=== PATIENT | female | born 1945 | race Caucasian/White ===

== ENCOUNTER 2019-11-19 08:33 | Outpatient (CLI) | payer MEDICARE, OTHER, SELFPAY ==
--- NOTE | 2019-11-19 08:45 | USCV_ITS ---
Lorraine Ramos Age: 74 Gender: F : 1945 Exam Date: 11/19/2019 08:41 Ordering Phys: Arsalan Beckett MD ([email or web address]) Technologist: Michell Jones [place] [facility] [place]: POST AVR BP: 130 / 60 HR: 50 Rhythm: Sinus Technical Quality: Adequate MEASUREMENTS (Male / Female) Normal Values 2D ECHO LV Diastolic Diameter PLAX 4.1 cm 4.2 - 5.9 / 3.9 - 5.3 cm LV Systolic Diameter PLAX 2.1 cm LV Chamber Size 2.6 cm IVS Diastolic Thickness 0.9 cm 0.6 - 1.0 / 0.6 - 0.9 cm IVS Systolic Thickness 1.5 cm LVPW Diastolic Thickness 2.0 cm 0.6 - 1.0 / 0.6 - 0.9 cm LVPW Systolic Thickness 2.3 cm RV Chamber Size 3.2 cm LVOT Diameter 1.8 cm LV Ejection Fraction 2D Teich 79.4 % LV Ejection Fraction MOD 2C 52.0 % LV Ejection Fraction 2C AL 53.7 % LA Diameter 3.6 cm LA Width 3.2 cm LA Height 4.6 cm RA Width 3.6 cm RA Height 3.4 cm M-MODE LV Diastolic Diameter MM 4.7 cm 4.2 - 5.9 / 3.9 - 5.3 cm LV Systolic Diameter MM 3.3 cm LV Ejection Fraction MM Teich 57.7 % IVS Diastolic Thickness MM 0.9 cm 0.6 - 1.0 / 0.6 - 0.9 cm IVS Systolic Thickness MM 0.9 cm LVPW Diastolic Thickness MM 0.8 cm 0.6 - 1.0 / 0.6 - 0.9 cm LVPW Systolic Thickness MM 0.9 cm Aortic Annulus Diameter 3.3 cm LA Ao Ratio MM 1.1 MV E Point Septal Separation 0.6 cm DOPPLER AV Peak Velocity 243.0 cm/s LVOT Peak Velocity 121.0 cm/s AV Area Cont Eq vti 1.5 cm squared AV Area Cont Eq pk 1.3 cm squared MV Area PHT 2.6 cm squared Mitral E to A Ratio 1.0 MV E' Velocity 7.0 cm/s Mitral E to MV E' Ratio 10.6 Mitral E to LV E' Lateral Ratio 10.3 Mitral E to LV E' Septal Ratio 10.9 TR Peak Velocity 296.0 cm/s TR Peak Gradient 35.0 mmHg TR Mean Velocity 162.0 cm/s TR Mean Gradient 13.2 mmHg TR Velocity Time Integral 107.3 cm TV Peak E Velocity 53.0 cm/s Right Atrial Pressure 3.0 mmHg Pulmonary Artery Systolic Pressu 38.0 mmHg PV Peak Velocity 70.0 cm/s RV Acceleration Time 0.2 s RV Ejection Time 0.4 s RV AcT/ET 0.4 FINDINGS Left Ventricle Normal left ventricular cavity size. Normal left ventricular systolic function. No regional wall motion abnormalities. Left ventricular ejection fraction is estimated at 57 %. Grade I/IV diastolic dysfunction (abnormal relaxation filling pattern), normal to mildly elevated filling pressures. Right Ventricle Normal right ventricular size. Mild pulmonary hypertension, RVSP 38 mmHg. Right Atrium The right atrium is normal in size. Left Atrium The left atrium is normal in size. Mitral Valve Mildly thickened mitral valve. Severe mitral annular calcification. No mitral valve stenosis. Aortic Valve Bioprosthetic aortic valve sitting in the normal position without valvular or paravalvular leak. Tricuspid Valve Moderate tricuspid valve regurgitation. Pulmonic Valve Structurally normal pulmonic valve without significant stenosis. There is no pulmonic regurgitation. Pericardium Normal pericardium without effusion. Aorta Normal ascending aorta dimension. CONCLUSIONS 1-Normal left ventricular cavity size. Normal left ventricular systolic function. No regional wall motion abnormalities. Left ventricular ejection fraction is estimated at 57 %. Grade I/IV diastolic dysfunction (abnormal relaxation filling pattern), normal to mildly elevated filling pressures. 2-Normal right ventricular size. Mild pulmonary hypertension, RVSP 38 mmHg. 3-There is no pericardial effusion. 4-Bioprosthetic aortic valve sitting in the normal position without valvular or paravalvular leak. 5-No significant change since the prior echocardiogram study of 06/18/2017. Arsalan Beckett MD (Electronically Signed) Final Date: 19 November 2019 11:51 S
== END 2019-11-19 08:34 | disposition home or self-care (01) ==
LOC: RAD 08:37
PROVIDERS: Family Provider Family Medicine; PCP Family Medicine; Visit Provider Internal Medicine Cardiovascular Disease
DX: Z95.2 Presence of prosthetic heart valve (principal); I07.1 Rheumatic tricuspid insufficiency; I27.20 Pulmonary hypertension, unspecified
CPT/HCPCS: 93306

== ENCOUNTER 2020-04-08 21:53 | Observation (INO) | payer MEDICARE, OTHER, SELFPAY ==
--- NOTE | 2020-04-08 | CTR_ITS ---
PROCEDURE INFORMATION: Exam: CT Head Without Contrast Exam date and time: 04/08/2020 9:57 PM Age: 74 years old Clinical indication: Weakness, facial; Additional info: Stroke alert TECHNIQUE: Imaging protocol: Computed tomography of the head without contrast. Radiation optimization: All CT scans at this facility use at least one of these dose optimization techniques: automated exposure control; mA and/or kV adjustment per patient size (includes targeted exams where dose is matched to clinical indication); or iterative reconstruction. Other technique: STROKE PROTOCOL was implemented. COMPARISON: No relevant prior studies available. RADIATION DOSE METRICS: Total DLP (mGy-cm): 772.7 FINDINGS: Brain: Normal. No hemorrhage. Unremarkable white matter. No mass effect. Ventricles: Normal. No ventriculomegaly. Bones/joints: Unremarkable. No acute fracture. Sinuses: Visualized sinuses are unremarkable. No fluid levels. Mastoid air cells: Visualized mastoid air cells are well aerated. Soft tissues: Unremarkable. CT/CT head wo con* [id number] IMPRESSION: No acute findings ASSESSMENT: ASPECTS ([place] Stroke Program Early CT Score) is 10. Radiation Dose CTDIVOL = (mGy): DLP = 772.7 (mGy-cm)
[2020-04-08 21:56] VITALS: BP 147/75; PULSE 60; RESP 19; TEMP 37.1; O2SAT 98
--- NOTE | 2020-04-08 21:57 | ECG_ITS ---
[facility] Test Date: 2020-04-08 Pat Name: Lorraine Ramos Department: Room: Gender: Female Sand Technologist: Catia : 1945 Requested By: Hoda Abebe Order Number: [id number] Rafal MD: Kyrie Herman M.D. Measurements Intervals [place] Rate: 72 P: 85 AR: 193 QRS: -65 QRSD: 115 T: 86 QT: 424 QTc: 464 Interpretive Statements SINUS RHYTHM LEFT ANTERIOR FASCICULAR BLOCK [QRS AXIS <= -45, QR IN I, RS IN II] POSSIBLE LATERAL MYOCARDIAL INFARCTION , OF INDETERMINATE AGE [30 ms Q WAVE IN I/aVL/V5/V6] No previous ECG available for comparison Electronically Signed On 04-09-2020 1:23:32 CDT by Kyrie Herman M.D. [id number]
--- NOTE | 2020-04-08 21:57 | XRR_ITS ---
PROCEDURE INFORMATION: Exam: XR Chest, 1 View Exam date and time: 04/08/2020 10:30 PM Age: 74 years old Clinical indication: Dyspnea; Additional info: CVA symptoms TECHNIQUE: Imaging protocol: XR of the chest Views: 1 view. COMPARISON: No relevant prior studies available. FINDINGS: Lungs: Visualized portions of the lungs are clear. Pleural space: Unremarkable. No pleural effusion. No pneumothorax. Heart/Mediastinum: Heart is within normal limits of size. There are findings of aortic valve replacement and median sternotomy. Bones/joints: Unremarkable. Soft tissues: There are postsurgical changes of left mastectomy. XR/XR chest 1V portable [id number] IMPRESSION: No acute infiltrate.
--- NOTE | 2020-04-08 21:57 | CTR_ITS ---
PROCEDURE INFORMATION: Exam: CT Angiography Head With Contrast Exam date and time: 04/08/2020 10:58 PM Age: 74 years old Clinical indication: Weakness; Additional info: CVA symptoms TECHNIQUE: Imaging protocol: Computed tomography angiography of the head with intravenous contrast. 3D rendering: MIP and/or 3D reconstructed images were created by the technologist. Radiation optimization: All CT scans at this facility use at least one of these dose optimization techniques: automated exposure control; mA and/or kV adjustment per patient size (includes targeted exams where dose is matched to clinical indication); or iterative reconstruction. Contrast material: VISI 320; Contrast volume: 95 ml; Contrast route: INTRAVENOUS (IV); COMPARISON: CT head wo con* [id number] 04/08/2020 9:47 PM RADIATION DOSE METRICS: Total DLP (mGy-cm): 2076.29 FINDINGS: Anterior cerebral arteries: No occlusion or significant stenosis. No aneurysm. Right internal carotid artery: There is some atherosclerotic plaque in the right cavernous carotid artery without significant stenosis. Right middle cerebral artery: No occlusion or significant stenosis. No aneurysm. Right posterior cerebral artery: No occlusion or significant stenosis. No aneurysm. Right vertebral artery: No occlusion or significant stenosis. No aneurysm. Left internal carotid artery: There is mild atherosclerotic plaque in the left cavernous carotid artery without significant stenosis. Left middle cerebral artery: No occlusion or significant stenosis. No aneurysm. Left posterior cerebral artery: No occlusion or significant stenosis. No aneurysm. Left vertebral artery: No occlusion or significant stenosis. No aneurysm. Basilar artery: No occlusion or significant stenosis. No aneurysm. IMPRESSION: There is no major vascular occlusion or intracranial aneurysm. PROCEDURE INFORMATION: Exam: CT Angiography Neck With Contrast Exam date and time: 04/08/2020 10:58 PM Age: 74 years old Clinical indication: Weakness; Additional info: CVA symptoms TECHNIQUE: Imaging protocol: Computed tomography angiography of the neck with intravenous contrast. 3D rendering: MIP and/or 3D reconstructed images were created by the technologist. Radiation optimization: All CT scans at this facility use at least one of these dose optimization techniques: automated exposure control; mA and/or kV adjustment per patient size (includes targeted exams where dose is matched to clinical indication); or iterative reconstruction. Contrast material: VISI 320; Contrast volume: 95 ml; Contrast route: INTRAVENOUS (IV); COMPARISON: CT head wo con* [id number] 04/08/2020 9:47 PM RADIATION DOSE METRICS: Total DLP (mGy-cm): 2076.29 FINDINGS: Right common carotid artery: No stenosis. No dissection or occlusion. Right internal carotid artery: There is some focal calcified plaque at the right carotid bifurcation and internal carotid artery without stenosis according to the NASCET criteria. Right external carotid artery: No occlusion or stenosis of the origin. Right vertebral artery: No stenosis. No dissection or occlusion. Left common carotid artery: No stenosis. No dissection or occlusion. Left internal carotid artery: There is focal atherosclerotic plaque and narrowing in the origin of the left internal carotid artery with approximately 20 impression: Mild stenosis in the proximal left internal carotid artery. % stenosis as measured according to the NASCET criteria. Left external carotid artery: No occlusion or stenosis of the origin. Left vertebral artery: No stenosis. No dissection or occlusion. Bones/joints: No acute fracture. Soft tissues: Normal. No significant soft tissue swelling. Lungs: There are calcified granulomas in both pulmonary apices. 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 REFERENCES: NASCET CRITERIA. The degree of internal carotid artery stenosis is based on NASCET criteria. Normal is no stenosis. Mild is less than 50% stenosis. Moderate is 50-69% stenosis. Severe is 70% to 99% stenosis. Total occlusion is no detectable patent lumen. Radiation Dose CTDIVOL = (mGy): DLP = 7.29~7.29 (mGy-cm)
--- NOTE | 2020-04-08 22:08 | PC.NURSE ---
EKG done at 2205, blood glucose is 126, EKG was shown to ER doctor and nurse, charge nurse are aware of blood glucose
[2020-04-08 22:12] LABS: Glucose Point of Care 126 mg/dL (70-110)
[2020-04-08 22:24] LABS: Basophils # 0.1 10^3/uL (0.0-0.1); Basophils % 0.6 %; Eosinophils # 0.2 10^3/uL (0.0-0.8); Hematocrit 38.5 % (37.0-47.0); Hemoglobin 12.4 g/dL (11.5-15.3); Mean Corpuscular HGB Conc 32.2 g/dL (30.0-36.0); Mean Corpuscular Hemoglobin 28.7 pg (28.0-34.0); Mean Corpuscular Volume 89.1 fL (81-99); Mean Platelet Volume 10.6 fL (7.4-10.4); Monocytes # 0.6 10^3/uL (0.2-0.9); Monocytes % 6.8 %; Neutrophils # 5.61 10^3/uL (1.8-7.7); Neutrophils % 66.2 %; Nucleated Red Blood Cells % 0 %; Platelet Count 219 10^3/cmm (130-400); Red Blood Count 4.32 10^6/uL (4.1-5.3); White Blood Count 8.5 10^3/uL (4.0-10.0)
[2020-04-08 22:30] LABS: INR 0.99 (0.8-1.2)
[2020-04-08 22:31] LABS: Partial Thromboplastin Time 27.7 SECONDS (23.9-36.7)
[2020-04-08 22:36] LABS: Alanine Aminotransferase 36 U/L (0-33); Albumin Level 4.6 g/dL (3.5-5.2); Alkaline Phosphatase 60 IU/L (35-105); Anion Gap 15.9 (5-19); Aspartate Amino Transferase 35 U/L (0-32); Blood Urea Nitrogen 27 mg/dL (8-23); Calcium 9.2 mg/dL (8.5-10.5); Carbon Dioxide 24 mmol/L (22-29); Chloride 103 mmol/L (98-107); Glucose 135 mg/dL (65-115); Osmolality Calculated 287 mOsm/kg (285-295); Potassium 3.9 mmol/L (3.5-5.1); Sodium 139 mmol/L (136-145); Total Bilirubin 0.2 mg/dL (0.15-1.2); Total Protein 6.6 g/dL (6.6-8.7)
[2020-04-08 22:38] LABS: Troponin(5th) Baseline 15 ng/L (0-10)
--- NOTE | 2020-04-08 23:10 | ED_ITS ---
HPI - Neuro Symptoms/Deficit General: Chief Complaint: Neuro Symptoms/Deficit Stated Complaint: stroke alert/ possible tia Time Seen by Provider: 04/08/20 21:56 Source: patient and EMS Mode of arrival: EMS Limitations: no limitations History of Present Illness: HPI Narrative: Lorraine is a very nice 74-year-old female who comes in complaining of strokelike symptoms. Patient is unsure of when the onset was but believes her last known well time to be approximately 7 PM but she is still not certain of this. Patient had left-sided deficits, slurred speech and facial droop. The patient had a prolonged time before calling family and then EMS had a difficult time getting her here secondary to weather delays. By the time the patient has arrived here to the ER she states her symptoms have completely resolved. EMS states the patient symptoms have completely resolved from what they have observed. Associated symptoms: Deny chest pain, diaphoresis, headache(s), malaise, nausea, syncope, vertigo or vomiting Review of Systems Const: Denies: fever(s), chills, body aches, fatigue, malaise or diaphoresis Eyes: Denies: change in vision, blurry vision, blind spots, photophobia, eye discharge or eye redness ENMT: Denies: throat pain, odynophagia, hoarseness, swelling of lips/tongue, oral sores, ear or mastoid pain, ear discharge, change in hearing or nasal discharge Card: Denies: chest pain, palpitations, irregular heart rhythm, edema, lightheadedness, syncope, pre-syncope, dyspnea on exertion or orthopnea Resp: Denies: dyspnea, productive cough, non-productive cough, wheezing, hemoptysis or chest congestion GI: Denies: abdominal pain, nausea, vomiting, hematemesis, coffee ground emesis, heartburn, diarrhea, constipation, GI cramping, hematochezia or melena : Denies: flank pain, dysuria, urinary frequency, urinary urgency or hematuria Musc: Denies: neck pain, back pain, extremity pain, extremity swelling, joint pain, joint swelling, joint redness, joint warmth or joint stiffness Skin/Breast: Denies: rash, pruritus, erythema, skin tenderness or jaundice Neuro: Reports: other (As noted in HPI); Denies: headache(s), numbness in extremities, difficulty walking, dizziness, vertigo, confusion or seizure-like activity David/Lymph: Denies: easy bruising, easy bleeding, petechiae, purpura or enlarged lymph nodes All/Imm: Denies: urticaria, throat swelling, tongue swelling, facial swelling or acute wheezing PFSH ED PFSH: Medical History History of CVA (cerebrovascular accident) HTN (hypertension) Kidney disease Surgical History S/P aortic valve replacement S/P CABG (coronary artery bypass graft) Family History Father , Cancer in every organ Cancer Mother Cancer Colon and Breast Cancer CAD (coronary artery disease) Grandmother Stroke Sister Hypertension Atrial fibrillation Brother Hypertension Social History Smoking and tobacco status: never smoked History of recent travel: No NIH stroke score NIHSS: Level Of Consciousness - 1a: 0 Level Of Consciousness Questions - 1b: Both Correct Level Of Consciousness Commands - 1c: Both Correct Best Gaze - 2: Normal Visual Cole - 3: No Visual Loss Facial Palsy - 4: Rosa l Motor Arm Right - 5: No Drift Motor Arm Left - 5: No Drift Motor Leg Right - 6: No Drift Motor Leg Left - 6: No Drift Limb Ataxia - 7: Absent Sensory - 8: Normal Best Language - 9: No Aphasia Dysarthia - 10: Mild/Moderate Dysarthia Extinction And Inattention - 11: 0 Score: Total Score: 1 Physical Exam Const: COMMON NORMALS: no acute distress, patient oriented x3, no limitations, healthy appearing and well nourished GENERAL APPEARANCE: cooperative, well kempt and well developed HENMT: COMMON NORMALS: normocephalic, atraumatic, external ears normal, EAC's normal and Normal external nose present HEAD & SCALP: normal to inspection, normocephalic and atraumatic FACE & SINUS: normal facial exam and face symmetric NOSE: Normal external nose present and Normal nares present EXTERNAL EAR: Yes external ears normal EXTERNAL AUDITORY CANAL: EAC's normal MOUTH: Normal oral and palatal mucosa present, lip normal and tongue normal Eye: COMMON NORMALS: Equal, round and reactive pupils present and conjunctivae normal GENERAL EYE: appearance normal, both eyes and all related structures ALIGNMENT: Yes alignment normal PERIORBITAL: periorbital findings normal EYELID: eyelids normal CONJUNCTIVA: Yes conjunctivae normal SCLERA: sclerae normal PUPIL: Yes Equal, round and reactive pupils present Neck/C-Spine: COMMON NORMALS: full ROM, no lymphadenopathy, supple, no meni ngeal signs and no JVD GENERAL: Yes normal visual inspection and Yes trachea midline Chest: COMMONS NORMALS: normal inspection of the chest and normal palpation of entire chest wall Resp: COMMON NORMALS: normal respiratory effort, No retractions and No use of accessory muscles EFFORT & INSPECTION: Yes able to speak in complete sentences and Yes symmetric chest movement AUSCULTATION: no crackles, no rales, no rhonchi and no wheezes Cardio: COMMON NORMALS: no JVD, regular rate, regular rhythm, S1 normal heart sound present and S2 normal heart sound present RATE: regular rate RHYTHM: regular rhythm HEART SOUNDS: S1 normal heart sound present, S2 normal heart sound present, no click, no gallops, Murmur heart sound present systolic, no rubs and abnormal split S2 GI: COMMON NORMALS: Soft to palpation and No hepatosplenomegaly present PALPATION: Yes Soft to palpation, No Tenderness to palpation present (GI), No Guarding due to palpation present (GI), No Rigid due to palpation, Yes No hepatosplenomegaly present, No Hernia present, No Palpable mass present and No Pulsatile mass present : COMMON NORMALS: Yes no CVA tenderness BLADDER/KIDNEY EXAM: Yes no CVA tenderness EXTERNAL FEMALE EXAM: No Hernia present Back/Pelvis: COMMON NORMALS: no CVA tenderness, thoracic and lumbar spine normal to inspection, no thoracic nor lumbar tenderness and thoraco-lumbar ROM normal Extremity: COMMON NORMALS: normal to inspection, full ROM, capillary refill normal, no joint enlargement, no clubbing, cyanosis or edema and no calf tenderness Neuro: COMMON NORMALS: patient oriented x3, CN's II-XII intact bilaterally, moves all extremities, no focal motor deficits and no sensory deficits noted MENINGEAL SIGNS: Yes no meningeal signs SPEECH: speech normal Psych: COMMON NORMALS: mental status grossly normal, Normal thought process present, cooperative, normal affect, speech normal and activity/motor behavior normal APPEARANCE: Yes well kempt SPEECH: Yes normal speech THOUGHT PROCESS: Normal thought process present Skin: COMMON NORMALS: no rashes or lesions noted, turgor normal, no jaundice, no petechiae and no mottling GENERAL SKIN EXAM: no rashes or lesions noted and turgor normal Course Vital Signs: Vital signs: Vital Signs Temperature 98.8 F 04/08/20 21:56 Pulse Rate 62 04/09/20 01:18 Respiratory Rate 19 H 04/09/20 01:18 Blood Pressure 143/70 04/09/20 01:18 Pulse Oximetry 97 04/09/20 01:18 MDM - Neuro Symptoms/Deficit MDM Narrative: Medical decision making narrative: The patient symptoms have almost completely resolved but she still has the mild a aphasia trying to find words at times. I am concerned about her heart valve having a possible nidus for embolus. I reviewed the case in full with Dr. Walton he was agreeable to admission but would just want a Plavix added at this time. He wants 75 mg not a higher loading dose. He will discuss need for possible MRI with her in the morning and at this time would like to go ahead with just the Plavix. The patient symptoms have almost completely resolved but because they continue and she will need a echo as she is high risk with heart valve I believe she should stay for observation she is in agreement. Lab Data: Attestation: I reviewed the patient's lab results. Labs: Lab Results 04/08/20 04/08/20 04/08/20 Range/Units 22:01 22:11 22:11 WBC 8.5 (4.0-10.0) 10^3/ uL RBC 4.32 (4.1-5.3) 10^6/u L Hgb 12.4 (11.5-15.3) g/dL Hct 38.5 (37.0-47.0) % MCV 89.1 (81-99) fL MCH 28.7 (28.0-34.0) pg MCHC 32.2 (30.0-36.0) g/dL RDW 13.0 (12.1-15.1) % Plt Count 219 (130-400) 10^3/c mm MPV 10.6 H (7.4-10.4) fL Neut % (Auto) 66.2 % Lymph % (Auto) 24.0 % Woodson % (Auto) 6.8 % Eos % (Auto) 2.0 % Baso % (Auto) 0.6 % Neut # (Auto) 5.61 (1.8-7.7) 10^3/u L Lymph # (Auto) 2.0 (0.8-4.8) 10^3/u L Woodson # (Auto) 0.6 (0.2-0.9) 10^3/u L Eos # (Auto) 0.2 (0.0-0.8) 10^3/u L Baso # (Auto) 0.1 (0.0-0.1) 10^3/u L Nucleated RBC % (a uto) 0 % Nucleated RBCs # 0.0 /100WBC PT 13.40 H (10.5-13.3) SECO NDS INR 0.99 (0.8-1.2) APTT 27.7 (23.9-36.7) SECO NDS Sodium (136-145) mmol/L Potassium (3.5-5.1) mmol/L Chloride (98-107) mmol/L Carbon Dioxide (22-29) mmol/L Anion Gap (5-19) BUN (8-23) mg/dL Creatinine (0.5-0.9) mg/dL Glucose (65-115) mg/dL POC Glucose 126 (70-110) mg/dL Calculated Osmolal ity (285-295) mOsm/k g Calcium (8.5-10.5) mg/dL Magnesium (1.7-2.3) mg/dL Total Bilirubin (0.15-1.2) mg/dL AST (0-32) U/L ALT (0-33) U/L Alkaline Phosphata se (35-105) IU/L Troponin T Baselin e (0-10) ng/L Total Protein (6.6-8.7) g/dL Albumin (3.5-5.2) g/dL Globulin (1.3-4.6) g/dL Urine Color (Yellow) Urine Appearance (CLEAR) Urine pH (5-7) Ur Specific Gravit y (1.005-1.030) Urine Protein (Negative) Urine Glucose (UA) (Normal) Urine Ketones (Negative) Urine Blood (Negative) Urine Nitrate (Negative) Urine Bilirubin (NEGATIVE) Urine Urobilinogen (Negative) mg/dL Ur Leukocyte Damaris ase (Negative) Urine RBC (0-2) /hpf Urine WBC (0-5) /hpf Ur Squamous Epith Cells (0-5) Urine Bacteria (NONE) 04/08/20 04/08/20 04/08/20 Range/Units 22:11 22:11 23:25 WBC (4.0-10.0) 10^3/ uL RBC (4.1-5.3) 10^6/u L Hgb (11.5-15.3) g/dL Hct (37.0-47.0) % MCV (81-99) fL MCH (28.0-34.0) pg MCHC (30.0-36.0) g/dL RDW (12.1-15.1) % Plt Count (130-400) 10^3/c mm MPV (7.4-10.4) fL Neut % (Auto) % Lymph % (Auto) % Woodson % (Auto) % Eos % (Auto) % Baso % (Auto) % Neut # (Auto) (1.8-7.7) 10^3/u L Lymph # (Auto) (0.8-4.8) 10^3/u L Woodson # (Auto) (0.2-0.9) 10^3/u L Eos # (Auto) (0.0-0.8) 10^3/u L Baso # (Auto) (0.0-0.1) 10^3/u L Nucleated RBC % (a uto) % Nucleated RBCs # /100WBC PT (10.5-13.3) SECO NDS INR (0.8-1.2) APTT (23.9-36.7) SECO NDS Sodium 139 (136-145) mmol/L Potassium 3.9 (3.5-5.1) mmol/L Chloride 103 (98-107) mmol/L Carbon Dioxide 24 (22-29) mmol/L Anion Gap 15.9 (5-19) BUN 27 H (8-23) mg/dL Creatinine 1.1 H (0.5-0.9) mg/dL Glucose 135 H (65-115) mg/dL POC Glucose (70-110) mg/dL Calculated Osmolal ity 287 (285-295) mOsm/k g Calcium 9.2 (8.5-10.5) mg/dL Magnesium 2.0 (1.7-2.3) mg/dL Total Bilirubin 0.2 (0.15-1.2) mg/dL AST 35 H (0-32) U/L ALT 36 H (0-33) U/L Alkaline Phosphata se 60 (35-105) IU/L Troponin T Baselin e 15 H (0-10) ng/L Total Protein 6.6 (6.6-8.7) g/dL Albumin 4.6 (3.5-5.2) g/dL Globulin 2.0 (1.3-4.6) g/dL Urine Color Yellow (Yellow) Urine Appearance Clear (CLEAR) Urine pH 7 (5-7) Ur Specific Gravit y 1.010 (1.005-1.030) Urine Protein Neg (Negative) Urine Glucose (UA) Norm (Normal) Urine Ketones Negative (Negative) Urine Blood Neg (Negative) Urine Nitrate Negative (Negative) Urine Bilirubin Neg (NEGATIVE) Urine Urobilinogen Norm (Negative) mg/dL Ur Leukocyte Damaris ase Negative (Negative) Urine RBC None (0-2) /hpf Urine WBC None (0-5) /hpf Ur Squamous Epith Cells None (0-5) Urine Bacteria Trace (NONE) Imaging Data^: CT Head: Radiologist's impression: [address] [address] [address] Scan Report Signed Patient: Lorraine Ramos Unit #: [id number] : 1945 Age/Sex: 74 / F ADM Date: 04/08/20 Loc: ER Room/Bed: Attending Dr: Ordering Provider/Ordering MD: Hoda Mayfield DO Date of Service: 04/08/20 Procedure(s): CT head wo con* [id number] Accession Number(s): [id number] Report Number: [id number] PROCEDURE INFORMATION: Exam: CT Head Without Contrast Exam date and time: 04/08/2020 9:57 PM Age: 74 years old Clinical indication: Weakness, facial; Additional info: Stroke alert TECHNIQUE: Imaging protocol: Computed tomography of the head without contrast. Radiation optimization: All CT scans at this facility use at least one of these dose optimization techniques: automated exposure control; mA and/or kV adjustment per patient size (includes targeted exams where dose is matched to clinical indication); or iterative reconstruction. Other technique: STROKE PROTOCOL was implemented. COMPARISON: No relevant prior studies available. RADIATION DOSE METRICS: Total DLP (mGy-cm): 772.7 FINDINGS: Brain: Normal. No hemorrhage. Unremarkable white matter. No mass effect. Ventricles: Normal. No ventriculomegaly. Bones/joints: Unremarkable. No acute fracture. Sinuses: Visualized sinuses are unremarkable. No fluid levels. Mastoid air cells: Visualized mastoid air cells are well aerated. Soft tissues: Unremarkable. CT/CT head wo con* [id number] IMPRESSION: No acute findings ASSESSMENT: ASPECTS ([place] Stroke Program Early CT Score) is 10. Radiation Dose CTDIVOL = (mGy): DLP = 772.7 (mGy-cm) Dictated By: Farzad Ruiz Signed By: Farzad Ruiz Signed Date/Time: 04/08/202208 DD/ 06 CTA Head and Neck: Radiologist's impression: [place] [address] CT Scan Report Signed Patient: Lorraine Ramos Unit #: [id number] : 1945 Age/Sex: 74 / F ADM Date: 04/08/20 Loc: ER Room/Bed: Attending Dr: Ordering Provider/Ordering MD: Hoda Mayfield DO Date of Service: 04/08/20 Procedure(s): CT angio headneck* [id number] Accession Number(s): [id number] Report Number: [id number] PROCEDURE INFORMATION: Exam: CT Angiography Head With Contrast Exam date and time: 04/08/2020 10:58 PM Age: 74 years old Clinical indication: Weakness; Additional info: CVA symptoms TECHNIQUE: Imaging protocol: Computed tomography angiography of the head with intravenous contrast. 3D rendering: MIP and/or 3D reconstructed images were created by the technologist. Radiation optimization: All CT scans at this facility use at least one of these dose optimization techniques: automated exposure control; mA and/or kV adjustment per patient size (includes targeted exams where dose is matched to clinical indication); or iterative reconstruction. Contrast material: VISI 320; Contrast volume: 95 ml; Contrast route: INTRAVENOUS (IV); COMPARISON: CT head wo con* [id number] 04/08/2020 9:47 PM RADIATION DOSE METRICS: Total DLP (mGy-cm): FINDINGS: Anterior cerebral arteries: No occlusion or significant stenosis. No aneurysm. Right internal carotid artery: There is some atherosclerotic plaque in the right cavernous carotid artery without significant stenosis. Right middle cerebral artery: No occlusion or significant stenosis. No aneurysm. Right posterior cerebral artery: No occlusion or significant stenosis. No aneurysm. Right vertebral artery: No occlusion or significant stenosis. No aneurysm. Left internal carotid artery: There is mild atherosclerotic plaque in the left cavernous carotid artery without significant stenosis. Left middle cerebral artery: No occlusion or significant stenosis. No aneurysm. Left posterior cerebral artery: No occlusion or significant stenosis. No aneurysm. Left vertebral artery: No occlusion or significant stenosis. No aneurysm. Basilar artery: No occlusion or significant stenosis. No aneurysm. IMPRESSION: There is no major vascular occlusion or intracranial aneurysm. PROCEDURE INFORMATION: Exam: CT Angiography Neck With Contrast Exam date and time: 04/08/2020 10:58 PM Age: 74 years old Clinical indication: Weakness; Additional info: CVA symptoms TECHNIQUE: Imaging protocol: Computed tomography angiography of the neck with intravenous contrast. 3D rendering: MIP and/or 3D reconstructed images were created by the technologist. Radiation optimization: All CT scans at this facility use at least one of these dose optimization techniques: automated exposure control; mA and/or kV adjustment per patient size (includes targeted exams where dose is matched to clinical indication); or iterative reconstruction. Contrast material: VISI 320; Contrast volume: 95 ml; Contrast route: INTRAVENOUS (IV); COMPARISON: CT head wo con* [id number] 04/08/2020 9:47 PM RADIATION DOSE METRICS: Total DLP (mGy-cm): FINDINGS: Right common carotid artery: No stenosis. No dissection or occlusion. Right internal carotid artery: There is some focal calcified plaque at the right carotid bifurcation and internal carotid artery without stenosis according to the NASCET criteria. Right external carotid artery: No occlusion or stenosis of the origin. Right vertebral artery: No stenosis. No dissection or occlusion. Left common carotid artery: No stenosis. No dissection or occlusion. Left internal carotid artery: There is focal atherosclerotic plaque and narrowing in the origin of the left internal carotid artery with approximately 20 impression: Mild stenosis in the proximal left internal carotid artery. % stenosis as measured according to the NASCET criteria. Left external carotid artery: No occlusion or stenosis of the origin. Left vertebral artery: No stenosis. No dissection or occlusion. Bones/joints: No acute fracture. Soft tissues: Normal. No significant soft tissue swelling. Lungs: There are calcified granulomas in both pulmonary apices. 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 REFERENCES: NASCET CRITERIA. The degree of internal carotid artery stenosis is based on NASCET criteria. Normal is no stenosis. Mild is less than 50% stenosis. Moderate is 50-69% stenosis. Severe is 70% to 99% stenosis. Total occlusion is no detectable patent lumen. Radiation Dose CTDIVOL = (mGy): DLP = 2077.29 2077.29 (mGy-cm) Dictated By: Farzad Ruiz Signed By: Farzad Ruiz Signed Date/Time: 04/08/20 2350 DD/ 2349 CXR: My impression: No acute cardiopulmonary findings. EKG Data^: EKG 1: Attestation: I personally reviewed and interpreted this EKG as follows: EKG interpretation date: 04/08/20 EKG interpretation time: 22:13 Interpretation: Normal sinus rhythm at 72 beats a minute, LVH, T wave inverted in aVL and V2, U waves present, QTC slightly prolonged. Discharge Plan Discharge Patient Disposition: Placed in Observation Admit Provider: Servando Galarza Clinical Impression: Cerebrovascular accident Qualifiers: CVA mechanism: unspecified Qualified Code(s): I63.9 - Cerebral infarction, unspecified Condition: Stable Referrals: Arnaldo Ramos [Primary Care Provider] - Discharge Date/Time: 04/09/20 01:43 Coding Level of Care Code ED Analytical Lab Technician for [facility] Fwd Exam Comprehensive
[2020-04-08] MEDS: iodixanol 320 mg/mL 100mL Btl IV (23:25)
[2020-04-08 23:50] VITALS: BP 129/78; PULSE 65; RESP 18; O2SAT 98
--- NOTE | 2020-04-08 23:57 | ECG_ITS ---
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 Measurements Intervals [place] Rate: 63 P: 29 CT: 191 QRS: -45 QRSD: 108 T: 61 QT: 461 QTc: 472 Interpretive Statements SINUS RHYTHM LEFT ANTERIOR FASCICULAR BLOCK [QRS AXIS <= -45, QR IN I, RS IN II] VOLTAGE CRITERIA FOR LVH [MEETS CRITERIA IN ONE OF: R(aVL), S(V1), R(V5), R(V5/V6)+S(V1)] Compared to ECG 04/08/2020 22:13:01 Left ventricular hypertrophy now present Myocardial infarct finding no longer present Electronically Signed On 04-09-2020 23:45:05 CDT by Kyrie Herman M.D. [id number]
[2020-04-09] VITALS (13 sets, daily range): BP systolic 125–168; BP diastolic 64–73; PULSE 62–76; RESP 16–21; TEMP 36.5–36.9; O2SAT 94–99
[2020-04-09 00:06] LABS: Glucose Urine UA Norm (Normal); Ketones Urine Negative (Negative); Protein Urine Neg (Negative); Urine Appearance Clear (CLEAR); Urine Color Yellow (Yellow); pH Urine 7 (5-7)
[2020-04-09 00:07] LABS: Bacteria Urine TRACE; Bilirubin Urine Neg (NEGATIVE); Blood Urine Neg (Negative); Leukocyte Esterase Urine Negative (Negative); Nitrate Urine Negative (Negative); Urobilinogen Urine Norm (Negative)
[2020-04-09] MEDS: clopidogrel 75 mg Tablet PO (01:07)
--- NOTE | 2020-04-09 03:57 | ECG_ITS ---
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 Measurements Intervals [place] Rate: 72 P: 85 WA: 193 QRS: -65 QRSD: 115 T: 86 QT: 424 QTc: 464 Interpretive Statements SINUS RHYTHM LEFT ANTERIOR FASCICULAR BLOCK [QRS AXIS <= -45, QR IN I, RS IN II] POSSIBLE LATERAL MYOCARDIAL INFARCTION , OF INDETERMINATE AGE [30 ms Q WAVE IN I/aVL/V5/V6] No previous ECG available for comparison Electronically Signed On 04-09-2020 23:43:34 CDT by Kyrie Herman M.D. [id number]
[2020-04-09 04:08] LABS: Basophils % 0.4 %; Eosinophils % 0.5 %; Hematocrit 36.2 % (37.0-47.0); Hemoglobin 11.8 g/dL (11.5-15.3); Lymphocytes # 1.7 10^3/uL (0.8-4.8); Lymphocytes % 22.3 %; Mean Corpuscular HGB Conc 32.6 g/dL (30.0-36.0); Mean Corpuscular Hemoglobin 29.2 pg (28.0-34.0); Mean Corpuscular Volume 89.6 fL (81-99); Mean Platelet Volume 10.8 fL (7.4-10.4); Monocytes # 0.4 10^3/uL (0.2-0.9); Monocytes % 5.2 %; Neutrophils # 5.34 10^3/uL (1.8-7.7); Neutrophils % 71.3 %; Nucleated Red Blood Cells % 0 %; Platelet Count 212 10^3/cmm (130-400); Red Blood Count 4.04 10^6/uL (4.1-5.3); White Blood Count 7.5 10^3/uL (4.0-10.0)
[2020-04-09 04:37] LABS: Anion Gap 14.8 (5-19); Blood Urea Nitrogen 18 mg/dL (8-23); Calcium 8.5 mg/dL (8.5-10.5); Carbon Dioxide 24 mmol/L (22-29); Chloride 106 mmol/L (98-107); Glucose 120 mg/dL (65-115); Osmolality Calculated 290 mOsm/kg (285-295); Potassium 3.8 mmol/L (3.5-5.1); Sodium 141 mmol/L (136-145)
--- NOTE | 2020-04-09 05:35 | P.HP_ITS ---
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 She fell off of the lawnmower backwards, and does not exactly remember how, but somehow got herself to the house, and called her daughter for help after she pulled herself up to the bar where the phone was. She remembers her speech being slurred when she was trying to talk. She does not remember if she had any numbness. She did not have any vision changes. She does not remember exactly the time when the symptoms happen, but remembers that her last usual self was probably sometime around 7 PM. There were weather delays getting her to the hospital. By the time she had gotten here her sym ptoms were completely resolved. She is currently feeling back to her usual self. Apart from this episode she otherwise has been at her usual state of health, without any recent complaints whatsoever. She has had no trouble with her heart valve, and follows with Dr. Beckett. She takes aspirin 325 mg at home. Celio. Review of Systems Const: Denies: fever(s), chills, body aches or malaise Eyes: Denies: change in vision or eye redness ENMT: Denies: throat pain, oral sores or ear or mastoid pain Card: Denies: chest pain, edema, pre-syncope or dyspnea on exertion Resp: Denies: dyspnea, productive cough, change in phlegm color or hemoptysis GI: Denies: abdominal pain, nausea, vomiting, diarrhea, constipation, he matochezia or melena : Denies: flank pain, urinary frequency or hematuria Musc: Denies: back pain, joint swelling or joint redness Skin/Breast: Denies: rash, sores or new lesions Neuro: Reports: weakness in extremities and Slurred speech present; Denies: headache(s), dizziness, confusion or seizure-like activity Endo: Denies: polyuria or polydipsia David/Lymph: Denies: easy bleeding or purpura All/Imm: Denies: urticaria, throat swelling or tongue swelling Medications/Allergies Home Medications Medication Instructions Recorded Confirmed Last Taken Type amlodipine 10 mg tablet 5 mg PO BID tab 11/04/19 04/09/20 Unknown History aspirin 325 mg tablet 325 mg PO DAILY 11/04/19 04/09/20 Unknown History atenolol 25 mg tablet 25 mg PO BID 11/04/19 04/09/20 Unknown History chlorthalidone 25 mg tablet 25 mg PO DAILY 11/04/19 04/09/20 Unknown History cholecalciferol (vitamin D3) 50 2,000 unit PO DAILY 11/04/19 04/09/20 Unknown History mcg (2,000 unit) tablet gabapentin 300 mg capsule 600 mg PO BID cap 11/04/19 04/09/20 Unknown History omega-3 fatty acids 1,000 mg 1,000 mg PO BID 11/04/19 04/09/20 Unknown History capsule peg 400-propylene glycol 0.4 %-0.3 1 drop OPHTHALMIC (EYE) BID 11/04/19 04/09/20 Unknown History % eye gel drops rosuvastatin 20 mg tablet 20 mg PO DAILY #90 tab 01/01/20 04/09/20 Unknown Rx Allergies Allergy/AdvReac Type Severity Reaction Status Date / Time morphine Allergy Unknown Unknown Verified 11/04/19 10:40 Sulfa (Sulfonamide Allergy Unknown Unknown Verified 11/04/19 10:40 Antibiotics) PFSH Acute PFSH: Medical History Benign ovarian tumor Breast cancer In the 60s History of CVA (cerebrovascular accident) HTN (hypertension) Kidney disease Surgical History H/O mastectomy History of back surgery S/P aortic valve replacement S/P CABG (coronary artery bypass graft) S/P ALEXY-BSO Family History Father , Cancer in every organ Cancer Mother Cancer Colon and Breast Cancer CAD (coronary artery disease) Grandmother Stroke Sister Hypertension Atrial fibrillation Brother Hypertension Social History Smoking and tobacco status: never smoked Alcohol intake: never Substance/Drug Use: never Lives independently: Yes Household members: none Housing: House Marital status: / History of recent travel: No Vitals/I&O/Wt Last Vital Signs Temp 97.9 F 04/09/20 05:05 Pulse 64 04/09/20 05:05 Resp 16 04/09/20 05:05 BP 139/64 04/09/20 05:05 Pulse Ox 96 04/09/20 05:05 Weight last 48 hrs Weight 69 kg Physical Exam Const: COMMON NORMALS: no acute distress and patient oriented x3 HENMT: COMMON NORMALS: oropharynx normal Neck/C-Spine: COMMON NORMALS: no JVD Resp: COMMON NORMALS: normal respiratory effort and clear to auscultation bilaterally AUSCULTATION: clear to auscultation bilaterally Cardio: COMMON NORMALS: no JVD, regular rhythm, S1 normal heart sound present, S2 normal heart sound present and No murmurs present (Cardio) RHYTHM: regular rhythm HEART SOUNDS: S1 normal heart sound present and S2 normal heart sound present GI: COMMON NORMALS: Normal to inspection, nondistended, normoactive bowel sounds present, Soft to palpation and non-tender PALPATION: Yes Soft to palpation Extremity: COMMON NORMALS: no joint enlargement and no pedal edema Neuro: COMMON NORMALS: patient oriented x3 and moves all extremities SPEECH: speech normal (Minute if any aphasia, although she feels is back to usual self) Skin: COMMON NORMALS: no rashes or lesions noted GENERAL SKIN EXAM: no rashes or lesions noted Data : 04/09/20 03:45 04/09/20 03:45 A&P Assessment and plan (1) TIA (transient ischemic attack): With left arm weakness, slurred speech. Was normal at 7 PM. Symptoms sometime after that while riding a lawnmower. Reports fell off backwards, but denies any symptoms. No trauma noted on CT head. CTA head and neck with mild left ICA stenosis. Already on aspirin at home and Crestor, with history of aortic valve replacement and CABG in 2013, subsequently with CVA after the surgery. Discussed concern regarding TIA and plan with her. Continue aspirin, statin. We will add Plavix. TTE ordered. Will assess with MRI to confirm whether CVA is present. She has perhaps minimal a aphasia resid ual, it takes her little bit of time to find the right words, although, she feels that she is back to her usual self. Monitor on telemetry. 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 Beckett. Consideration may need to be given to cardiac event monitoring as this may alter management in case she needs anticoagulation, as well as assessment by OLGA given bioprosthetic valve. Consider outpatient assessment by A1c. At this time no need for ST, OT or PT evaluation as she is back to her baseline or very close to it. There is high risk of stroke after the TIA with ABCD^2 score of 6. Status: Acute (2) S/P aortic valve replacement: Assessed by TTE. Continue aspirin, statin. Continue follow-up with cardiology. Consider evaluation by OLGA given TIA with high stroke risk after TIA. Status: Acute (3) S/P CABG (coronary artery bypass graft): Continue aspirin, statin, beta-ngozi. Status: Acute (4) HTN (hypertension): Currently at goal. Hold blood pressure medication for now. Status: Acute Attestations Medical Necessity Statement*: Place in observation. Coding Level of Care Code Acute Architecture Instructor for Eloy Byers Exam Comprehensive Diagnoses TIA (transient ischemic attack) G45.9 S/P aortic valve replacement Z95.2 S/P CABG (coronary artery bypass graft) Z95.1 HTN (hypertension) I10
--- NOTE | 2020-04-09 05:47 | MR_ITS ---
WS: [id number] MRI HEAD WITHOUT CONTRAST TECHNIQUE: Sagittal T1, T2 axial, T2 axial FLAIR, axial and coronal T1 images, axial susceptibility w eighted imaging, axial diffusion weighted images, and coronal T2 images were obtained. CLINICAL INFORMATION: TIA vs CVA COMPARISON: CT April 08, 2020 FINDINGS: Patchy foci of restricted diffusion involving the right posterior frontal lobe and right frontal florencia etal junction extending to the cortex consistent with acute ischemia. Additional smaller foci involvi ng the right parietal cortex laterally. Findings are consistent with acute ischemia. Mild associated edema. No significant mass effect or midline shift. No other foci of restricted diffusion. Brainstem is normal. Mild small vessel changes. Mild parenchymal volume loss. No hydrocephalus. Normal posterior fossa. No rmal vascular flow voids at the skull base. No extra-axial fluid collections. Paranasal sinuses and m astoid air cells are well aerated. No hemosiderin on susceptibly weighted images. Mild symmetric atro phy involving the temporal lobes and hippocampal formations. Normal optic chiasm and pituitary infund ibulum. MR/MR head wo con* [id number] IMPRESSION: 1. Evidence of patchy acute ischemia involving the right posterior frontal lob e, frontal parietal junction, and right parietal lobe laterally extending to th e cortex. Mild associated edema. 2. No significant mass effect or midline shift. 3. No hydrocephalus. 4. Additional chronic findings as described above.
[2020-04-09 07:34] LABS: Alanine Aminotransferase 33 U/L (0-33); Albumin Level 4.1 g/dL (3.5-5.2); Alkaline Phosphatase 59 IU/L (35-105); Anion Gap 13.1 (5-19); Aspartate Amino Transferase 27 U/L (0-32); Blood Urea Nitrogen 18 mg/dL (8-23); Calcium 8.7 mg/dL (8.5-10.5); Carbon Dioxide 26 mmol/L (22-29); Chloride 105 mmol/L (98-107); Globulin 2.8 g/dL (1.3-4.6); Glucose 129 mg/dL (65-115); Osmolality Calculated 288 mOsm/kg (285-295); Potassium 4.1 mmol/L (3.5-5.1); Sodium 140 mmol/L (136-145); Total Bilirubin 0.3 mg/dL (0.15-1.2); Total Protein 6.9 g/dL (6.6-8.7)
[2020-04-09] MEDS: sodium chloride 0.9% 1,000 ML 100 ML IV (07:58)
[2020-04-09] MEDS: aspirin 325 mg Tablet PO (07:58)
[2020-04-09] MEDS: atorvastatin 40 mg Tablet 80 MG PO (07:58)
[2020-04-09] MEDS: ondansetron 2 mg/ML SDV 2 mL 4 MG IVP (07:59)
[2020-04-09] MEDS: gabapentin 300 mg Capsule 600 MG PO (07:59)
--- NOTE | 2020-04-09 08:00 | USCV_ITS ---
Lorraine Ramos Age: 74 Gender: F : 1945 Exam Date: 04/09/2020 06:20 Ordering Phys: Hoda Mayfield DO Technologist: Jaylin Villagran Exam Location: [facility] [place] Indication: AO BOVINE WITH TIA BP: / HR: 65 Rhythm: Sinus Technical Quality: Adequate MEASUREMENTS (Male / Female) Normal Values 2D ECHO LV Diastolic Diameter PLAX 4.3 cm 4.2 - 5.9 / 3.9 - 5.3 cm LV Systolic Diameter PLAX 2.2 cm LV Chamber Size 3.6 cm IVS Diastolic Thickness 1.3 cm 0.6 - 1.0 / 0.6 - 0.9 cm IVS Systolic Thickness 2.1 cm LVPW Diastolic Thickness 1.1 cm 0.6 - 1.0 / 0.6 - 0.9 cm LVPW Systolic Thickness 1.9 cm RV Chamber Size 2.7 cm LVOT Diameter 1.9 cm LV Ejection Fraction 2D Teich 80.7 % LV Ejection Fraction MOD 2C 53.5 % LV Ejection Fraction 2C AL 59.2 % LA Diameter 3.3 cm LA Width 3.1 cm LA Height 3.7 cm RA Width 3.0 cm RA Height 4.1 cm Aorta at Sinotubular Diameter 3.2 cm M-MODE LV Diastolic Diameter MM 4.6 cm 4.2 - 5.9 / 3.9 - 5.3 cm LV Systolic Diameter MM 2.7 cm LV Ejection Fraction MM Teich 72.3 % IVS Diastolic Thickness MM 1.5 cm 0.6 - 1.0 / 0.6 - 0.9 cm IVS Systolic Thickness MM 1.9 cm LVPW Diastolic Thickness MM 1.1 cm 0.6 - 1.0 / 0.6 - 0.9 cm LVPW Systolic Thickness MM 2.1 cm RV Diastolic Diameter MM 1.3 cm Aortic Annulus Diameter 3.5 cm LA Ao Ratio MM 1.0 MV E Point Septal Separation 0.5 cm DOPPLER AV Peak Velocity 303.0 cm/s LVOT Peak Velocity 123.0 cm/s AV Area Cont Eq vti 1.2 cm squared AV Area Cont Eq pk 1.2 cm squared MV Area PHT 3.9 cm squared Mitral E to A Ratio 0.9 MV E' Velocity 11.0 cm/s Mitral E to MV E' Ratio 10.0 Mitral E to LV E' Lateral Ratio 9.8 Mitral E to LV E' Septal Ratio 10.3 TR Peak Velocity 274.8 cm/s TR Peak Gradient 30.2 mmHg TR Mean Velocity 174.9 cm/s TR Mean Gradient 16.0 mmHg TR Velocity Time Integral 86.7 cm TV Peak E Velocity 68.0 cm/s Right Atrial Pressure 3.0 mmHg Pulmonary Artery Systolic Pressu 33.2 mmHg PV Peak Velocity 60.0 cm/s RV Acceleration Time 0.2 s RV Ejection Time 0.4 s RV AcT/ET 0.5 FINDINGS Left Ventricle Normal left ventricular cavity size. Normal left ventricular systolic function. No regional wall motion abnormalities. Left ventricular ejection fraction is estimated at 73 %. Grade II/IV diastolic dysfunction, moderately elevated filling pressures. Right Ventricle The right ventricle is normal in size and function. Right Atrium The right atrium is normal in size. Left Atrium Mildly increased left atrial size. Mitral Valve Moderately thickened mitral valve. Moderate mitral annular calcification. No mitral valve stenosis. Mild mitral valve regurgitation. Aortic Valve Bioprosthetic aortic valve is sitting in normal position without significant valvular or paravalvular leak, mean gradient 15.8 mmHg, MISA 1.2 cm squared. Trace aortic valve regurgitation. Velocity across the aortic valve is 3 m/s. Tricuspid Valve Thickened tricuspid valve. Moderate tricuspid valve regurgitation. Pulmonic Valve Structurally normal pulmonic valve without significant stenosis. There is no pulmonic regurgitation. Pericardium Normal pericardium without effusion. Aorta Normal ascending aorta dimension. CONCLUSIONS 1-Normal left ventricular cavity size. Normal left ventricular systolic function. No regional wall motion abnormalities. Left ventricular ejection fraction is estimated at 73 %. Grade II/IV diastolic dysfunction, moderately elevated filling pressures. 2-Bioprosthetic Aortic vlave is sitting in normal position without any significant valvular or paravalvular leak, mean gradient 15.8 mmHg, MISA 1.2 cm squared. Trace aortic valve regurgitation. Velocity across the aortic valve is 3 m/s. 3-Moderately thickened mitral valve. Moderate mitral annular calcification. No mitral valve stenosis. Mild mitral valve regurgitation. 4-Thickened tricuspid valve. Moderate tricuspid valve regurgitation. 5-There is no pericardial effusion. 6-Pulmonary artery systolic pressure is within normal limits. 7-When compared to the prior echocardiogram 11/19/2019 there is no significant difference Arsalan Beckett MD (Electronically Signed) Final Date: 09 April 2020 15:57 S
--- NOTE | 2020-04-09 10:32 | PC.CHAP ---
Pastoral Care Encounter/Spiritual Assessment Type of Contact [] Declined impregnator helper visit [] Patient/Family/Request visit [] Outpatient visit [] Follow-up visit [] Physician referral [] Code/Alert [x] Routine visit [] Staff referral [] Actively dying [] Patient sleeping [] Family support [] [] Out of room [] Palliative care [] [] Receiving care in room [] Pre-surgical visit [] Trauma [] Long length of stay [] ICU visit [] Other: Relational/Emotional Strength [] Patient feels connected with others/family/visitors/staff [] Distress [] Loneliness/isolation [] Abandonment Spirituality of Patient [] Person of Earnestine [] Attends [employer] of their Earnestine [] Believes in Prayer [] Reads Bible or Hoahaoism materials [] There are Spiritual issues to be addressed Final Rail Cutter Interventions [x] Prayer [x] Active listening [x] Non-anxious presence [x] Spiritual/emotional support [] Crisis/trauma care [] Spiritual counseling [] Bereavement support [] Provided bereavement packet [] Provided Bible/devotional materials [] Provided toy/stuffed animal, coloring book to patient or family member [] Provided Communion [] Anointing/[place] [] Salvation [] Completed spiritual assessment [] Other: Impact on Illness or Injury [] Angry [] Fearful [] Anxious [] Often cries [] Exhaustion [] Unable to work [] Unable to attend mandaeism [] Unable to walk/stand [] Unable to read [] Unable to drive [] Unable to eat/drink [] Unable to sleep [] Unable to be with family [] Patient intubated [] Other: Summary Patient resting Time spent with patient 5 min
[2020-04-09 15:37] LABS: Chol HDL Ratio 2.64 mg/dL (0.0-4.40); Cholesterol 116 mg/dL (0-200); HDL Cholesterol 44 mg/dL (60-100); Iron 32 ug/dL (37-145); LDL Cholesterol Calculated 62 mg/dL (50-129); Percent Saturation 12.3 % (20-50); Total Iron Binding Capacity 260 mcg/dl; Triglycerides 50 mg/dL (0-150); Unsaturated Iron Binding 228 ug/dL (112-347); VLDL Cholestrol Calculation 10 mg/dL (0-30)
[2020-04-09 17:36] LABS: Troponin 5 6HR 15.78 ng/L (0-10); Troponin 5 6HR Delta 0.78 ng/L (0-12)
--- NOTE | 2020-04-09 17:50 | P.DS_ITS ---
Discharge Providers Date of Admission: 04/09/20 00:42 Date of Discharge: April 09, 2020 Attending Provider at Admission: Servando Galarza Attending Provider at Discharge: Horacio Car MD Primary Care Provider: Arnaldo Ramos Diagnoses at Discharge Discharge Diagnosis (1) S/P aortic valve replacement: Status: Acute (2) S/P CABG (coronary artery bypass graft): Status: Acute (3) HTN (hypertension): Status: Acute (4) Cerebrovascular accident: Status: Acute Qualifiers: CVA mechanism: unspecified Qualified Code(s): I63.9 - Cerebral infarction, unspecified Reason for Visit Reason for Visit: stroke alert/ possible tia Hospital Course Discharge Summary: Lorraine Ramos is a very pleasant 74 year old lady with past history of CVA after aortic valve surgery and CABG in 2013, at that time with difficulty speaking, confusion, but overall with all residual symptoms resolved with time, HTN, chronic kidney disease was riding the lawnmower today, when she noticed that her left hand and arm slid off of the steering wheel, and was hanging down without any power. She fell off of the lawnmower backwards, and does not exactly remember how, but somehow got herself to the house, and called her daughter for help after she pulled herself up to the bar where the phone was. She remembers her speech being slurred when she was trying to talk. She does not remember if she had any numbness. She did not have any vision changes. She does not remember exactly the time when the symptoms happen, but remembers that her last usual self was probably sometime around 7 PM. There were weather delays getting her to the hospital. By the time she had gotten here her symptoms were completely resolved. She is currently feeling back to her usual self. Apart from this episode she otherwise has been at her usual state of health, without any recent complaints whatsoever. She has had no trouble with her heart valve, and follows with Dr. Beckett. She takes aspirin 325 mg at home. She was admitted to the hospital for further monitoring overnight. Patient did not have any further episodes. Her telemetry remained stable. Her blood pressures remained stable. Echocardiogram was done which showed a normal EF with grade 2 diastolic dysfunction, normal functioning, normal positioning of bioprosthetic valve without any structural abnormality. Patient underwent head MRI which showed evidence of patchy acute ischemia involving the right posterior frontal lobe, frontoparietal junction, right parietal lobe laterally extending into the cortex with mild associated edema. Patient's blood work showed a normal lipid panel. She is been discharged on aspirin, statin and Plavix has been added to her medication list. She is to continue her home medications of amlodipine, atenolol, chlorthalidone from [facility] morning. Patient is advised to get a Holter monitor placed for next 15 days and follow-up with her outpatient dispenser operator for further results to rule out paroxysmal A. fib. It is quite possible that patient might require transesophageal echocardiogram to rule out any possible calcification home aortic cusp or valves. She is been discharged hemodynamically stable condition at her baseline mentation. Physical Exam Narrative: EXAM NARRATIVE: General: No acute distress, AO x3 HEENT: PERRLA, pupils bilaterally equal and reactive Chest: Normal vesicular breath sounds, no added sounds, equal good air entry bilaterally CVS: S1-S2 regular, no murmurs, no tachycardia, no gallops, no rubs Abdomen: Soft, nontender, no organomegaly, bowel sounds present Neuro: No focal deficits, no facial deformity, AO x3, power 5/5 in all limbs Discharge Data Data Completed and Pending: Completed Studies During Hospitalization Category Date Time Status CT angio headneck * [id number] Urge nt Cat Scan 04/08/20 21:[address] head wo con* [id number] Urgent Cat Scan 04/08/20 Completed XR chest 1V rocio ble [id number] Stat Exams 04/08/20 21:57 Completed MR head wo con* [id number] Routine MRI 04/09/20 05:47 Completed CV echo complete* [id number] Urgent Ultrasound 04/09/20 08:00 Completed Pending at discharge Category Date Time Status CA 2 week event m onitor Routine Exams 04/09/20 13:55 Ordered Troponin(5th) 2 H our. Timed Lab 04/08/20 23:57 Ordered Labs from last 24 hours 04/09/20 04/09/20 04/09/20 07:05 07:05 07:05 WBC RBC Hgb Hct MCV MCH MCHC RDW Plt Count MPV Neut % (Auto) Lymph % (Auto) [place] % (Auto) Eos % (Auto) Baso % (Auto) Neut # (Auto) Lymph # (Auto) [place] # (Auto) Eos # (Auto) Baso # (Auto) Nucleated RBC % (a uto) Nucleated RBCs # PT INR APTT Sodium 140 Potassium 4.1 Chloride 105 Carbon Dioxide 26 Anion Gap 13.1 BUN 18 Creatinine 0.8 Glucose 129 H POC Glucose Calculated Osmolal ity 288 Calcium 8.7 Magnesium Iron 32 L TIBC 260 % Saturation 12.3 L Unsat Iron Binding 228 Total Bilirubin 0.3 AST 27 ALT 33 Alkaline Phosphata se 59 Troponin T Baselin e Troponin T Hi Sens 6Hr Troponin T Hi Sens 6Hr Delta Total Protein 6.9 Albumin 4.1 Globulin 2.8 Triglycerides 50 Cholesterol 116 LDL Cholesterol, C alc 62 Total VLDL Cholest caroline 10 HDL Cholesterol 44 L Cholesterol/HDL Ra talat 2.64 TSH 2.40 Urine Color Urine Appearance Urine pH Ur Specific Gravit y Urine Protein Urine Glucose (UA) Urine Ketones Urine Blood Urine Nitrate Urine Bilirubin Urine Urobilinogen Ur Leukocyte Damaris ase Urine RBC Urine WBC Ur Squamous Epith Cells Urine Bacteria 04/09/20 04/09/20 04/09/20 03:45 03:45 03:45 WBC 7.5 RBC 4.04 L Hgb 11.8 Hct 36.2 L MCV 89.6 MCH 29.2 MCHC 32.6 RDW 13.0 Plt Count 212 MPV 10.8 H Neut % (Auto) 71.3 Lymph % (Auto) 22.3 [place] % (Auto) 5.2 Eos % (Auto) 0.5 Baso % (Auto) 0.4 Neut # (Auto) 5.34 Lymph # (Auto) 1.7 [place] # (Auto) 0.4 Eos # (Auto) 0.0 Baso # (Auto) 0.0 Nucleated RBC % (a uto) 0 Nucleated RBCs # 0.0 PT INR APTT Sodium 141 Potassium 3.8 Chloride 106 Carbon Dioxide 24 Anion Gap 14.8 BUN 18 Creatinine 0.9 Glucose 120 H POC Glucose Calculated Osmolal ity 290 Calcium 8.5 Magnesium Iron TIBC % Saturation Unsat Iron Binding Total Bilirubin AST ALT Alkaline Phosphata se Troponin T Baselin e Troponin T Hi Sens 6Hr 15.78 H Troponin T Hi Sens 6Hr Delta 0.78 Total Protein Albumin Globulin Triglycerides Cholesterol LDL Cholesterol, C alc Total VLDL Cholest caroline HDL Cholesterol Cholesterol/HDL Ra talat TSH Urine Color Urine Appearance Urine pH Ur Specific Gravit y Urine Protein Urine Glucose (UA) Urine Ketones Urine Blood Urine Nitrate Urine Bilirubin Urine Urobilinogen Ur Leukocyte Damaris ase Urine RBC Urine WBC Ur Squamous Epith Cells Urine Bacteria 04/08/20 04/08/20 04/08/20 23:25 22:11 22:11 WBC RBC Hgb Hct MCV MCH MCHC RDW Plt Count MPV Neut % (Auto) Lymph % (Auto) [place] % (Auto) Eos % (Auto) Baso % (Auto) Neut # (Auto) Lymph # (Auto) [place] # (Auto) Eos # (Auto) Baso # (Auto) Nucleated RBC % (a uto) Nucleated RBCs # PT INR APTT Sodium 139 Potassium 3.9 Chloride 103 Carbon Dioxide 24 Anion Gap 15.9 BUN 27 H Creatinine 1.1 H Glucose 135 H POC Glucose Calculated Osmolal ity 287 Calcium 9.2 Magnesium 2.0 Iron TIBC % Saturation Unsat Iron Binding Total Bilirubin 0.2 AST 35 H ALT 36 H Alkaline Phosphata se 60 Troponin T Baselin e 15 H Troponin T Hi Sens 6Hr Troponin T Hi Sens 6Hr Delta Total Protein 6.6 Albumin 4.6 Globulin 2.0 Triglycerides Cholesterol LDL Cholesterol, C alc Total VLDL Cholest caroline HDL Cholesterol Cholesterol/HDL Ra talat TSH Urine Color Yellow Urine Appearance Clear Urine pH 7 Ur Specific Gravit y 1.010 Urine Protein Neg Urine Glucose (UA) Norm Urine Ketones Negative Urine Blood Neg Urine Nitrate Negative Urine Bilirubin Neg Urine Urobilinogen Norm Ur Leukocyte Damaris ase Negative Urine RBC None Urine WBC None Ur Squamous Epith Cells None Urine Bacteria Trace 04/08/20 04/08/20 04/08/20 22:11 22:11 22:01 WBC 8.5 RBC 4.32 Hgb 12.4 Hct 38.5 MCV 89.1 MCH 28.7 MCHC 32.2 RDW 13.0 Plt Count 219 MPV 10.6 H Neut % (Auto) 66.2 Lymph % (Auto) 24.0 [place] % (Auto) 6.8 Eos % (Auto) 2.0 Baso % (Auto) 0.6 Neut # (Auto) 5.61 Lymph # (Auto) 2.0 [place] # (Auto) 0.6 Eos # (Auto) 0.2 Baso # (Auto) 0.1 Nucleated RBC % (a uto) 0 Nucleated RBCs # 0.0 PT 13.40 H INR 0.99 APTT 27.7 Sodium Potassium Chloride Carbon Dioxide Anion Gap BUN Creatinine Glucose POC Glucose 126 Calculated Osmolal ity Calcium Magnesium Iron TIBC % Saturation Unsat Iron Binding Total Bilirubin AST ALT Alkaline Phosphata se Troponin T Baselin e Troponin T Hi Sens 6Hr Troponin T Hi Sens 6Hr Delta Total Protein Albumin Globulin Triglycerides Cholesterol LDL Cholesterol, C alc Total VLDL Cholest caroline HDL Cholesterol Cholesterol/HDL Ra talat TSH Urine Color Urine Appearance Urine pH Ur Specific Gravit y Urine Protein Urine Glucose (UA) Urine Ketones Urine Blood Urine Nitrate Urine Bilirubin Urine Urobilinogen Ur Leukocyte Damaris ase Urine RBC Urine WBC Ur Squamous Epith Cells Urine Bacteria Vitals: Last Vital Signs Temp 98.1 F 04/09/20 16:00 Pulse 68 04/09/20 16:21 Resp 18 04/09/20 16:00 BP 153/72 04/09/20 16:00 Pulse Ox 94 04/09/20 16:21 Discharge Plan Discharge Patient Disposition: Home, Self-Care Condition: Stable Prescriptions: New clopidogrel 75 mg Tablet 75 mg PO Q24H Qty: 30 RF: 0 Continued atenolol 25 mg tablet 25 mg PO BID RF: 0 amlodipine 10 mg tablet 5 mg PO BID RF: 0 gabapentin 300 mg capsule 600 mg PO BID RF: 0 aspirin 325 mg tablet 325 mg PO DAILY RF: 0 omega-3 fatty acids [Fish Oil Concentrate] 1,000 mg capsule 1,000 mg PO BID RF: 0 cholecalciferol (vitamin D3) 2,000 unit tablet 2,000 unit PO DAILY RF: 0 Systane Gel 0.4-0.3 % drops,gel 1 drop ophthalmic (eye) BID RF: 0 chlorthalidone 25 mg tablet 25 mg PO DAILY RF: 0 Changed rosuvastatin 20 mg tablet 40 mg PO DAILY Qty: 90 RF: 3 Discharge Orders: Discharge Order (Routine); Ordered 04/09/20 Ordered By: Horacio Car Referrals: Arsalan Beckett MD [Physician] - 2 weeks Arnaldo Ramos [Primary Care Provider] - 04/13/20 2:40 pm (You have a follow up appointment with Dr. Ramos in [facility] on April 13 at 2:40pm) Discharge Diet: Cardiac and Diabetic Discharge Activity: Resume usual activity and Increase activity as tolerated Activity Restrictions/Additional Instructions: Plavix has been added to your medication list. Please take atenolol tonight and lost all your blood pressure medication tomorrow morning. Rosuvastatin has been increased to 40 mg. Holter monitor to be placed on Sunday for 2 weeks and then follow up with Dr. Beckett. Discharge Attestations Time Spent in Discharge Care*: greater than 30 min Specific Discharge Activities: Specific discharge activities: educating patient, educating and/or supporting family/caregiver, discussing with porter sample case/social workers/dc planners, documenting/other paperwork and evaluating patient/reviewing data Status at Discharge: Cognitive status at discharge: cognitively intact , Behavioral status at discharge: cooperative , Functional status at discharge: independent ambulation Overall status at discharge: patient is back to baseline Quality Metrics Clinical Quality Measures During this hospital stay, did patient experience: Stroke Contraindication to Antithrombotic: Antithrombotic prescribed Contraindication to Anticoagulation: Anticoagulation prescribed Contraindication to Statin: Statin prescribed Contraindication to antithrombotic day 2: Antithrombotic given Coding Level of Care 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
== END 2020-04-09 18:35 | disposition home or self-care (01) ==
LOC: ER 04-09 00:50 → MEDSURG 04-09 00:59
PROVIDERS: Emergency Medicine; Admitting Provider Internal Medicine; PCP Family Medicine; Visit Provider Student in an Organized Health Care Education/Training Program
DX: I63.9 Cerebral infarction, unspecified (principal); Z95.2 Presence of prosthetic heart valve; Z95.1 Presence of aortocoronary bypass graft; I12.9 Hypertensive chronic kidney disease with stage 1 through stage 4 chronic kidney disease, or unspecified chronic kidney disease; N18.9 Chronic kidney disease, unspecified; Z79.82 Long term (current) use of aspirin; Z85.3 Personal history of malignant neoplasm of breast
CPT/HCPCS: 12345; 36416; 70450; 70496; 70498; 70551; 71045; 80048; 80053; 80061; 81001; 82962; 83540; 83550; 83735; 84443; 84484; 85025; 85610; 85730; 93005; 93306; 96375; 99283; 99285; G0378; J2405; J7030; Q9967

== ENCOUNTER 2020-05-04 14:07 | Outpatient (RCR) | payer MEDICARE, OTHER, SELFPAY | END 2020-05-24 23:59 | disposition home or self-care (01) | LOC: SPT 14:07 | PROVIDERS: PCP Family Medicine; Referring Provider Family Medicine; Visit Provider Family Medicine | DX: I89.0 Lymphedema, not elsewhere classified (principal) | CPT/HCPCS: 97140; 97161 ==

== ENCOUNTER 2020-05-25 06:00 | Outpatient (RCR) | payer MEDICARE, OTHER, SELFPAY | END 2020-06-23 23:59 | disposition home or self-care (01) | LOC: SPT 06:00 | PROVIDERS: PCP Family Medicine; Referring Provider Family Medicine; Visit Provider Family Medicine | DX: F80.9 Developmental disorder of speech and language, unspecified (principal) | CPT/HCPCS: 97140 ==

== ENCOUNTER 2020-12-01 13:39 | Outpatient (CLI) | payer MEDICARE, OTHER, SELFPAY ==
--- NOTE | 2020-12-01 13:44 | MM_ITS ---
WS: [id number] RIGHT DIGITAL MAMMOGRAPHY WITH CAD CLINICAL INFORMATION: HX OF BREAST CA;RT BREAST MASS/PAIN COMPARISON: TECHNIQUE: 5 views of the right breast were obtained. FINDINGS: Palpable marker right breast Scattered fibroglandular densities of the right breast. Palpable marker lower inner right breast. No suspicious mammographic abnormality deep to the palpable marker. Ultrasound is pending. ULTRASOUND BREAST RIGHT TECHNIQUE: Ultrasound right breast focused area of concern. CLINICAL INFORMATION: HX OF BREAST CA;RT BREAST MASS/PAIN COMPARISON: 2018 FINDINGS: Ultrasound right breast the 5:00 position. Normal underlying parenchymal tissue. No cystic or solid l esions. No lesions to target for biopsy. MM/[place] [id number] IMPRESSION: BI-RADS: 2-Benign FOLLOW UP: 1 Year Follow-up Recommend return to annual diagnostic mammography.
== END 2020-12-01 13:40 | disposition home or self-care (01) ==
PROVIDERS: PCP Family Medicine; Visit Provider Family Medicine
DX: Z85.3 Personal history of malignant neoplasm of breast (principal); N63.10 Unspecified lump in the right breast, unspecified quadrant
CPT/HCPCS: 76642; 77065

== ENCOUNTER → 2022-02-27 13:35 | Outpatient (BNVA) | payer MEDICARE, OTHER, SELFPAY | PROVIDERS: PCP Family Medicine; Visit Provider Nurse Practitioner Family | DX: I25.10 Atherosclerotic heart disease of native coronary artery without angina pectoris (principal); I10 Essential (primary) hypertension; Z95.1 Presence of aortocoronary bypass graft; Z95.2 Presence of prosthetic heart valve | CPT/HCPCS: 93005; 99214 ==

== ENCOUNTER 2022-05-01 12:17 | Outpatient (CLI) | payer MEDICARE, SELFPAY ==
--- NOTE | 2022-05-01 13:10 | MM_ITS ---
WS: [id number] RIGHT 3D TOMOSYNTHESIS DIGITAL MAMMOGRAPHY WITH CAD CLINICAL INFORMATION: HISTORY OF BREAST CANCER, LEFT MASTECTOMY COMPARISON: December 01, 2020 TECHNIQUE: 3 views of the right breast were obtained. FINDINGS: Scattered fibroglandular densities of the right breast. Biopsy clip RIGHT breast. A few tiny punctate calcifications. No suspicious focal mass, asymmetry, calcifications, or architectural distortion. No evidence of juanito gnancy. MM/[place] [id number] IMPRESSION: BI-RADS: 2-Benign FOLLOW UP: 1 Year Follow-up Recommend return to annual diagnostic mammography.
== END 2022-05-01 12:18 | disposition home or self-care (01) ==
LOC: RAD 12:17
PROVIDERS: PCP Family Medicine; Visit Provider Family Medicine
DX: Z85.3 Personal history of malignant neoplasm of breast (principal); Z90.12 Acquired absence of left breast and nipple
CPT/HCPCS: 77061

== ENCOUNTER → 2022-07-25 14:09 | Outpatient (BNVA) | payer MEDICARE, SELFPAY | PROVIDERS: PCP Family Medicine; Visit Provider Internal Medicine Cardiovascular Disease | DX: R00.1 Bradycardia, unspecified (principal); I25.10 Atherosclerotic heart disease of native coronary artery without angina pectoris; Z95.2 Presence of prosthetic heart valve; I10 Essential (primary) hypertension; Z95.1 Presence of aortocoronary bypass graft; Z86.73 Personal history of transient ischemic attack (TIA), and cerebral infarction without residual deficits | CPT/HCPCS: 99214 ==

== ENCOUNTER 2023-06-05 11:16 | Outpatient (CLI) | payer MEDICARE, SELFPAY ==
--- NOTE | 2023-06-05 11:22 | MM_ITS ---
WS: [id number] RIGHT 3D TOMOSYNTHESIS DIGITAL MAMMOGRAPHY WITH CAD CLINICAL INFORMATION: HX BR CA;LT MST HISTORY: Prior LEFT mastectomy COMPARISON: 05/01/2022 TECHNIQUE: 3 views of the right breast were obtained. FINDINGS: Scattered fibroglandular densities of the right breast. A few tiny punctate calcifications. Biopsy cl ip RIGHT breast along the axillary tail. New small asymmetric ovoid density near the 12 o'clock position middle depth RIGHT breast is new from previous. Recommend further evaluation with RIGHT diagnostic mammography and ultrasound. Small lesio n measures approximately 7 mm. No other new findings. IMPRESSION: MM/[place] [id number] BI-RADS: 0-Incomplete: Need additional imaging evaluation FOLLOW UP: Need Additional Imaging
== END 2023-06-05 11:17 | disposition home or self-care (01) ==
LOC: RAD 11:17
PROVIDERS: PCP Family Medicine; Visit Provider Family Medicine
DX: Z85.3 Personal history of malignant neoplasm of breast (principal); Z90.12 Acquired absence of left breast and nipple
CPT/HCPCS: 77061; G0279

== ENCOUNTER → 2023-06-26 15:32 | Outpatient (BNVA) | payer MEDICARE, SELFPAY | PROVIDERS: PCP Family Medicine; Visit Provider Internal Medicine Cardiovascular Disease | DX: R00.1 Bradycardia, unspecified (principal); I45.10 Unspecified right bundle-branch block; I21.9 Acute myocardial infarction, unspecified; Z95.3 Presence of xenogenic heart valve; Z86.73 Personal history of transient ischemic attack (TIA), and cerebral infarction without residual deficits; I25.10 Atherosclerotic heart disease of native coronary artery without angina pectoris; Z95.1 Presence of aortocoronary bypass graft; Z01.810 Encounter for preprocedural cardiovascular examination; Z95.2 Presence of prosthetic heart valve; I45.2 Bifascicular block; I10 Essential (primary) hypertension | CPT/HCPCS: 93005; 99214 ==

== ENCOUNTER 2023-06-29 06:05 | Outpatient (CLI) | payer MEDICARE, SELFPAY ==
--- NOTE | 2023-06-29 06:30 | USCV_ITS ---
Lorraine Ramos Age: 77 Gender: F : 1945 Exam Date: 06/29/2023 06:31 Ordering Phys: Yanely Box MD ([email or web address]) Technologist: Conner Araiza [place] [facility] [place]: Pre op clearance, h/o bioprosthetic aortic valve BP: 123 / 75 HR: 59 Rhythm: Sinus Technical Quality: Adequate MEASUREMENTS (Male / Female) Normal Values 2D ECHO LVOT Diameter 2.0 cm LV Ejection Fraction MOD 2C 73.2 % LV Ejection Fraction 2C AL 73.6 % LA Diameter 3.1 cm LA Width 3.1 cm LA Height 3.6 cm RA Width 2.5 cm RA Height 4.1 cm Aorta at Sinotubular Diameter 2.1 cm IVC Diameter 1.7 cm M-MODE Aortic Annulus Diameter 2.6 cm LA Ao Ratio MM 1.3 MV E Point Septal Separation 0.6 cm DOPPLER AV Peak Velocity 188.7 cm/s LVOT Peak Velocity 98.0 cm/s AV Area Cont Eq vti 1.6 cm squared AV Area Cont Eq pk 1.6 cm squared MV Peak Velocity 120.0 cm/s MV Area PHT 2.9 cm squared Mitral E to A Ratio 0.7 MV E' Velocity 37.0 cm/s Mitral E to MV E' Ratio 7.5 Mitral E to LV E' Lateral Ratio 7.5 Mitral E to LV E' Septal Ratio 7.5 TR Peak Velocity 281.3 cm/s TR Peak Gradient 31.7 mmHg TR Mean Velocity 214.4 cm/s TR Mean Gradient 19.8 mmHg TR Velocity Time Integral 91.1 cm Right Atrial Pressure 3.0 mmHg Pulmonary Artery Systolic Pressu 34.7 mmHg PV Peak Velocity 108.0 cm/s RV Acceleration Time 0.1 s RV Ejection Time 0.3 s RV AcT/ET 0.5 FINDINGS Left Ventricle Normal left ventricular size, systolic function and increased wall thickness, with no regional wall motion abnormalities. Left ventricular ejection fraction is estimated at 65 %. Normal diastolic function. Right Ventricle Normal right ventricular size and systolic function. Right ventricular systolic pressure 37 mmHg. Right Atrium Normal right atrial size. Left Atrium Upper normal left atrial size. Mitral Valve Structurally normal mitral valve. No mitral valve stenosis. Mild mitral valve regurgitation. Aortic Valve Bioprosthetic aortic valve well seated and normal functioning . Peak velocity 1.9 m/s, mean gradient 6 mm Hg. No aortic valve or bere-valvular regurgitation. Tricuspid Valve Structurally normal tricuspid valve. No tricuspid valve stenosis. Mild tricuspid valve regurgitation. Pulmonic Valve Structurally normal pulmonic valve. No pulmonary valve stenosis. Trace pulmonary valve regurgitation. Pericardium No pericardial effusion. Aorta Normal size aortic root and proximal ascending aorta. IVC Normal IVC dimension with >50% respiratory change of the inferior vena cava. CONCLUSIONS 1. Normal left ventricular size, systolic function and increased wall thickness, with no regional wall motion abnormalities. Left ventricular ejection fraction is estimated at 65 %. Normal diastolic function. 2. Mild mitral and tricuspid valve regurgitation. 3. Pulmonary artery pressure estimated at 37 mm Hg. 4. Bioprosthetic aortic valve well seated and normal functioning . Peak velocity 1.9 m/s, mean gradient 6 mm Hg. 5. When compared to study dated 04/09/2020, there may not have been any significant change. Yanely Box MD (Electronically Signed) Final Date: 03 July 2023 06:03 S
== END 2023-06-29 06:06 | disposition home or self-care (01) ==
PROVIDERS: PCP Family Medicine; Visit Provider Internal Medicine Cardiovascular Disease
DX: Z01.810 Encounter for preprocedural cardiovascular examination (principal); Z95.1 Presence of aortocoronary bypass graft; Z95.2 Presence of prosthetic heart valve; I08.1 Rheumatic disorders of both mitral and tricuspid valves
CPT/HCPCS: 93306

== ENCOUNTER 2023-07-05 10:11 | Outpatient (CLI) | payer MEDICARE, SELFPAY ==
--- NOTE | 2023-07-05 10:41 | MM_ITS ---
WS: [id number] RIGHT 3D TOMOSYNTHESIS DIGITAL MAMMOGRAPHY WITH CAD CLINICAL INFORMATION: ABNORMAL MAMMO HISTORY: Additional views COMPARISON: 06/05/2023 TECHNIQUE: 3 views of the right breast were obtained. FINDINGS: Scattered fibroglandular densities of the right breast. Previously described 7 mm ovoid density near the 12 o'clock position RIGHT breast not seen today on the spot compression views. No other suspiciou s abnormalities. Recommend return to annual screen mammography. IMPRESSION: MM/[place] [id number] BI-RADS: 2-Benign FOLLOW UP: 1 Year Follow-up Recommend return to annual screening mammography.
== END 2023-07-05 10:12 | disposition home or self-care (01) ==
PROVIDERS: PCP Family Medicine; Visit Provider Family Medicine
DX: R92.8 Other abnormal and inconclusive findings on diagnostic imaging of breast (principal)
CPT/HCPCS: 77061; G0279

== ENCOUNTER → 2023-07-31 12:30 | Outpatient (BNVA) | payer MEDICARE, SELFPAY | PROVIDERS: PCP Family Medicine; Visit Provider Nurse Practitioner Family | DX: I10 Essential (primary) hypertension (principal) | CPT/HCPCS: 99213 ==

== ENCOUNTER → 2024-01-28 13:49 | Outpatient (BNVA) | payer MEDICARE, SELFPAY | PROVIDERS: PCP Family Medicine; Visit Provider Nurse Practitioner Family | DX: D48.5 Neoplasm of uncertain behavior of skin (principal); D18.01 Hemangioma of skin and subcutaneous tissue; L71.8 Other rosacea; I89.0 Lymphedema, not elsewhere classified; L81.4 Other melanin hyperpigmentation | CPT/HCPCS: 11102; 99203 ==

== ENCOUNTER → 2024-06-05 10:26 | Outpatient (BNVA) | payer MEDICARE, SELFPAY | PROVIDERS: PCP Family Medicine; Visit Provider Internal Medicine Cardiovascular Disease | DX: I25.10 Atherosclerotic heart disease of native coronary artery without angina pectoris (principal); Z95.1 Presence of aortocoronary bypass graft; Z95.2 Presence of prosthetic heart valve; I10 Essential (primary) hypertension; R00.1 Bradycardia, unspecified; Z86.73 Personal history of transient ischemic attack (TIA), and cerebral infarction without residual deficits | CPT/HCPCS: 99214 ==

== ENCOUNTER 2024-07-24 12:44 | Outpatient (CLI) | payer MEDICARE, SELFPAY ==
--- NOTE | 2024-07-24 12:46 | MM_ITS ---
WS: [id number] RIGHT 3D TOMOSYNTHESIS DIGITAL MAMMOGRAPHY WITH CAD CLINICAL INFORMATION: HX OF BREAST CANCER HISTORY: History of breast cancer COMPARISON: 2021 TECHNIQUE: 3 views of the right breast were obtained. FINDINGS: Scattered fibroglandular densities of the right breast. Biopsy marker Upper quadrant RIGHT breast No suspicious focal mass, asymmetry, calcifications, or architectural distortion. No evidence of juanito gnancy. MM/MM diag RT tomosynthesis [id number] IMPRESSION: DENSITY: There are scattered areas of fibroglandular density. BI-RADS: 2 - Benign. FOLLOW UP: 1 Year Follow-up Recommend return to annual diagnostic mammography.
== END 2024-07-24 12:45 | disposition home or self-care (01) ==
LOC: RAD 12:44
PROVIDERS: PCP Family Medicine; Visit Provider Family Medicine
DX: Z85.3 Personal history of malignant neoplasm of breast (principal); R92.323 Mammographic fibroglandular density, bilateral breasts
CPT/HCPCS: 77061; G0279

== ENCOUNTER → 2024-08-04 14:15 | Outpatient (BNVA) | payer MEDICARE, SELFPAY | PROVIDERS: PCP Family Medicine; Visit Provider Nurse Practitioner Family | DX: D18.01 Hemangioma of skin and subcutaneous tissue (principal); L71.8 Other rosacea; I89.0 Lymphedema, not elsewhere classified; L81.4 Other melanin hyperpigmentation; D48.5 Neoplasm of uncertain behavior of skin | CPT/HCPCS: 11102; 99213 ==

== ENCOUNTER → 2025-01-14 14:00 | Outpatient (BNVA) | payer MEDICARE, SELFPAY | PROVIDERS: PCP Family Medicine; Visit Provider Internal Medicine Cardiovascular Disease | DX: I25.10 Atherosclerotic heart disease of native coronary artery without angina pectoris (principal); Z95.2 Presence of prosthetic heart valve; I10 Essential (primary) hypertension; R00.1 Bradycardia, unspecified | CPT/HCPCS: 99214 ==

== ENCOUNTER → 2025-01-27 13:26 | Outpatient (BNVA) | payer MEDICARE, SELFPAY | PROVIDERS: PCP Family Medicine; Visit Provider Nurse Practitioner Family | DX: D22.62 Melanocytic nevi of left upper limb, including shoulder (principal); L81.4 Other melanin hyperpigmentation; L57.8 Other skin changes due to chronic exposure to nonionizing radiation; D22.4 Melanocytic nevi of scalp and neck; L82.1 Other seborrheic keratosis | CPT/HCPCS: 99213 ==

== ENCOUNTER → 2025-03-16 13:50 | Outpatient (BNVA) | payer MEDICARE, SELFPAY | PROVIDERS: PCP Family Medicine; Visit Provider Dermatology | DX: L81.7 Pigmented purpuric dermatosis (principal); D22.62 Melanocytic nevi of left upper limb, including shoulder | CPT/HCPCS: 11602; 13121; 99214 ==

== ENCOUNTER → 2025-03-31 12:11 | Outpatient (BNVA) | payer MEDICARE, SELFPAY | PROVIDERS: PCP Family Medicine; Visit Provider Dermatology | DX: L81.7 Pigmented purpuric dermatosis (principal) | CPT/HCPCS: 99214 ==

== ENCOUNTER → 2025-07-16 15:24 | Outpatient (BNVA) | payer MEDICARE, SELFPAY | PROVIDERS: PCP Family Medicine; Visit Provider Internal Medicine Cardiovascular Disease | DX: I25.10 Atherosclerotic heart disease of native coronary artery without angina pectoris (principal); I10 Essential (primary) hypertension; R00.1 Bradycardia, unspecified; Z95.2 Presence of prosthetic heart valve; Z95.1 Presence of aortocoronary bypass graft; Z86.73 Personal history of transient ischemic attack (TIA), and cerebral infarction without residual deficits; R06.09 Other forms of dyspnea; R07.9 Chest pain, unspecified; Z79.02 Long term (current) use of antithrombotics/antiplatelets; Z79.82 Long term (current) use of aspirin | CPT/HCPCS: 93005; 99214 ==

== ENCOUNTER 2025-08-05 11:48 | Outpatient (CLI) | payer MEDICARE, SELFPAY ==
--- NOTE | 2025-08-05 12:00 | USCV_ITS ---
Lorraine Ramos Age: 79 Gender: F : 1945 Exam Date: 08/05/2025 12:26 Ordering Phys: Kyrie Herman MD ([email or web address]) Technologist: [place] [facility] [place]: mv pros BP: 130 / 80 HR: 60 Rhythm: Sinus Technical Quality: Adequate MEASUREMENTS (Male / Female) Normal Values 2D ECHO LV Diastolic Diameter PLAX 3.9 cm 4.2 - 5.9 / 3.9 - 5.3 cm IVS Diastolic Thickness 1.3 cm 0.6 - 1.0 / 0.6 - 0.9 cm IVS Systolic Thickness 1.5 cm LVPW Diastolic Thickness 1.4 cm 0.6 - 1.0 / 0.6 - 0.9 cm LVPW Systolic Thickness 1.6 cm LVOT Diameter 2.1 cm LV Ejection Fraction 2D Teich 64.8 % LV Ejection Fraction MOD 4C 68.1 % LV Ejection Fraction MOD 2C 61.8 % LV Ejection Fraction 2C AL 64.1 % LA Diameter 3.1 cm RA Systolic Volume 4C AL 40.8 ml RA Systolic Volume 4C MOD 39.4 ml Aorta at Sinotubular Diameter 3.0 cm M-MODE LA Ao Ratio MM 1.4 AV Cusp Separation MM 2.1 cm DOPPLER AV Peak Velocity 217.0 cm/s LVOT Peak Velocity 94.0 cm/s AV Area Cont Eq vti 1.8 cm squared AV Area Cont Eq pk 1.5 cm squared MV Peak Velocity 107.0 cm/s MV Area PHT 2.9 cm squared Mitral E to A Ratio 1.1 TV Peak Velocity 224.5 cm/s TR Peak Velocity 264.0 cm/s TR Peak Gradient 27.9 mmHg TV Peak E Velocity 89.0 cm/s PV Peak Velocity 149.0 cm/s FINDINGS Left Ventricle Normal left ventricular size and systolic function, EF 68%.no regional wall motion abnormalities. Mild to moderate left ventricular hypertrophy. Grade I/IV diastolic dysfunction (abnormal relaxation filling pattern), normal to mildly elevated filling pressures. Right Ventricle Normal right ventricular size and systolic function. Right Atrium Normal right atrial size. Left Atrium Normal left atrial size. IA Septum The interatrial septum appears to be intact. Mitral Valve Mild mitral valve regurgitation. Aortic Valve The bioprosthetic valve at the aortic portion appears to be well-seated. Some calcification was noted in the leaflets. The peak velocity across the valve was 2.17 m/s with a peak gradient of 19 and a mean gradient of 7 mmHg. Tricuspid Valve Trace tricuspid valve regurgitation. Estimated pulmonary artery peak systolic pressure 31 mmHg Pulmonic Valve [id number] pulmonary valve regurgitation. Pericardium No pericardial effusion. Aorta Normal aortic annulus size. IVC Normal inferior vena cava. CONCLUSIONS Normal left ventricular size and systolic function, EF 68%.no regional wall motion abnormalities. Mild to moderate left ventricular hypertrophy. Grade I/IV diastolic dysfunction (abnormal relaxation filling pattern), normal to mildly elevated filling pressures. The interatrial septum appears to be intact. Mild mitral valve regurgitation. The bioprosthetic valve at the aortic portion appears to be well-seated. Some calcification was noted in the leaflets. The peak velocity across the valve was 2.17 m/s with a peak gradient of 19 and a mean gradient of 7 mmHg. Trace tricuspid valve regurgitation. Estimated pulmonary artery peak systolic pressure 31 mmHg. [id number] pulmonary valve regurgitation. There is no pericardial effusion. There are no intracardiac masses. Compared to study from 06/29/2023, there may not be a significant change Dr Kyrie Herman MD [facility] (Electronically Signed) Final Date: 09 August 2025 19:25 S
== END 2025-08-05 11:49 | disposition home or self-care (01) ==
LOC: RAD 11:50
PROVIDERS: PCP Family Medicine; Visit Provider Internal Medicine Cardiovascular Disease
DX: R06.09 Other forms of dyspnea (principal); I51.89 Other ill-defined heart diseases; I34.0 Nonrheumatic mitral (valve) insufficiency; Z95.2 Presence of prosthetic heart valve; I36.1 Nonrheumatic tricuspid (valve) insufficiency; I37.1 Nonrheumatic pulmonary valve insufficiency
CPT/HCPCS: 93306